=== PATIENT | female | born 1950 | race Caucasian/White ===

== ENCOUNTER → 2020-03-15 | Outpatient (CLI) | payer MEDICARE ==
--- NOTE | 2020-03-17 16:50 | RAD ---
BILATERAL SCREENING MAMMOGRAM, 3-D History: Routine screening. Comparison: 03/05/2019, 03/07/2018. Technique: MLO and CC digital tomosynthesis (3D) images obtained. Radiologist reviewed these images on dedicated workstation. Findings: Breast Tissue Density B : There are scattered areas of fibroglandular density. There are no dominant masses, suspicious microcalcifications, or architectural distortion. Multiple small vessels bilaterally and possible asymmetries are stable compared to the prior exams. IMPRESSION: No mammographic evidence of malignancy. Recommend routine screening. BI-RADS category 1: Negative. The images were reviewed with computer-aided detection. Patient information is entered into reminder system with a target due date for the next screening mammogram. Mammography is the most sensitive method for finding small breast cancers, but it does not detect them all and is not a substitute for careful clinical examination. A negative mammogram does not negate a clinically suspicious finding and should not result in delay in biopsying a clinically suspicious abnormality. "Our facility is accredited by the [employer] Mammography Program." Electronically signed by: Chavo Paul MD (03/17/2020 4:47 PM) [email or web address]
== END | disposition home or self-care (01) ==
LOC: MAMMO 13:10
PROVIDERS: ATTEND Family Medicine
DX: Z12.31 Encounter for screening mammogram for malignant neoplasm of breast (principal)
CPT/HCPCS: 77063; 77067

== ENCOUNTER → 2020-04-19 | Outpatient (CLI) | payer MEDICARE ==
--- NOTE | 2020-04-19 17:32 | RAD ---
GASTRIC EMPTYING STUDY History: Reason: ABD. PAIN / Spl. Instructions: / History: COMPARISON: None. TECHNIQUE: Serial static images were obtained over the stomach following oral administration of 2 mCi of 99m-Tc sulfur colloid in an egg based meal. FINDINGS: The stomach appears normal in contour. There is clearance of activity into the small bowel. The remaining fraction of gastric activity is as follows. 1 hour 50% (normal range 34.8-91%) 2 hour 18% (normal range 2.7-60%) 3 hour 7% (normal range 0.5-28%) 4 hour 1% (normal range 0-10%) Gastric emptying half-time is 57 minutes (normal <90 minutes). IMPRESSION: 1. Normal gastric emptying. Electronically signed by: Goran Mayer DO (04/19/2020 5:29 PM) [facility]
== END | disposition home or self-care (01) ==
LOC: NM 08:43
PROVIDERS: ATTEND Internal Medicine Gastroenterology
DX: R10.84 Generalized abdominal pain (principal)
CPT/HCPCS: 78264; A9541

== ENCOUNTER → 2021-03-01 | Outpatient (CLI) | payer MEDICARE ==
--- NOTE | 2021-03-01 14:56 | RAD ---
PROCEDURE: MG BILAT SCREEN+SHAWN HISTORY: The patient is 70 years old and is seen for Reason: SCREENING / Spl. Instructions: / Histor y: . COMPARISON: March 15, 2020 TECHNIQUE: CC and MLO views of both breasts were obtained. Images were processed by the [employer] computer-aided detection system. DENSITY: There are scattered fibroglandular densities. FINDINGS: Bilateral scattered breast masses, unchanged. Benign-appearing calcifications on the right, unchanged. IMPRESSION: Stable bilateral mammograms. Recommend annual screening mammograms per [employer] [employer] guidelines. She will be due in one year. BI-RADS category 2 Benign Patient entered into a reminder system for annual screening mammogram. Electronically signed by: Goran Mayer DO (03/01/2021 2:54 PM) [id number]
== END ==
LOC: MAMMO 13:23
PROVIDERS: ATTEND Family Medicine
DX: Z12.31 Encounter for screening mammogram for malignant neoplasm of breast (principal)
CPT/HCPCS: 77063; 77067

== ENCOUNTER → 2021-03-15 | Outpatient (CLI) | payer MEDICARE ==
--- NOTE | 2021-03-15 15:06 | RAD ---
EXAM: Chest CT without intravenous contrast. HISTORY: Pulmonary nodule. TECHNIQUE: Computed tomographic images of the chest were obtained without contrast. Multiplanar refor matting was performed. *One or more of the following individualized dose reduction techniques were utilized for this examina tion: 1. Automated exposure control. 2. Adjustment of the mA and/or kV according to patient size. 3. Use of iterative reconstruction technique. COMPARISON: None. FINDINGS: The heart is normal in size. The aorta is normal in caliber. There is suggestion of a small right thyroid nodule. No pathologically enlarged lymph node is seen. There is no pneumothorax or ple ural effusion. There are few nonspecific peripheral areas of groundglass opacity likely due to pleura l parenchymal scarring and atelectasis. There is a 3 mm pleural-based nodule within the anterior late ral right middle lobe with adjacent atelectasis or scarring. There is posterior dependent atelectasis . There are hepatic cysts. The largest of these measures 8.7 cm within the right hepatic lobe. There is no acute finding involving the upper abdomen. There are degenerative changes involving the spine. There are multiple endplate Schmorl's nodes. There is a suspected bone island within T11. IMPRESSION: 1. Mild multifocal pleural proximal scarring and basilar atelectasis. There is no acute infiltrate. 2. 3 mm pleural-based nodule within the right middle lobe. Follow-up can performed in one year if the re are risk factors for pulmonary neoplasm. 3. Multiple simple appearing hepatic cysts. Electronically signed by: Patricia Schmidt MD (03/15/2021 3:03 PM) [id number]
== END ==
LOC: CT 14:03
PROVIDERS: ATTEND Family Medicine
DX: R91.1 Solitary pulmonary nodule (principal); J98.11 Atelectasis; J98.4 Other disorders of lung; M51.44 Schmorl's nodes, thoracic region
CPT/HCPCS: 71250

== ENCOUNTER → 2021-11-21 | Outpatient (CLI) | payer MEDICARE ==
--- NOTE | 2021-11-21 13:58 | RAD ---
Right upper quadrant abdominal ultrasound History: Reason: HEPATIC STEATOSIS / Spl. Instructions: / History: Comparison: CT chest without contrast, March 15, 2021. Technique: Transabdominal ultrasound images are obtained. Findings: The liver is increased in echogenicity.. The liver measures 18.6 cm. Ultrasound is not sensitive for detecting solid liver lesions. Portal flow is hepatopetal. There are hepatic cysts. There is a 1.3 cm cyst in the left hepatic lobe. There is a posterior right hepatic lobe cyst measuring up to 9.4 cm. The common bile duct diameter measures 5 mm. The gallbladder wall measures less than 3 mm. Per report, sonographic Castro sign is negative. There is no cholelithiasis or pericholecystic fluid. The pancreas is echogenic and is partially seen due to overlying bowel gas. The right kidney is normal in echotexture and measures 9.7 cm. Corticomedullary differentiation is p reserved. There is no hydronephrosis. IVC is not well seen due to overlying bowel gas. IMPRESSION: Fatty infiltration of the liver. Mild hepatomegaly. Hepatic cysts. Electronically signed by: Matthias Logan MD (11/21/2021 1:56 PM) [id number]
== END ==
LOC: US 11:51
PROVIDERS: ATTEND Family Medicine
DX: K76.0 Fatty (change of) liver, not elsewhere classified (principal); R16.0 Hepatomegaly, not elsewhere classified; K76.89 Other specified diseases of liver
CPT/HCPCS: 76705

== ENCOUNTER 2022-02-06 14:44 | Emergency (ER) | payer MEDICARE ==
[~2022-02-06] VITALS: Ht 157.5 cm; Wt 92.0 kg
[2022-02-06] MEDS ORDERED: OXYMETAZOLINE 0.05% NASAL SPRAY 30ML BOTTLE. NS ONE (15:15)
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
[2022-02-06] MEDS ORDERED: NEOMY/BACITR/POLYMYXIN OINT PACKET. TP ONE (16:30)
[2022-02-06 16:45] VITALS: BP 148/82
== END 2022-02-06 16:55 | disposition home or self-care (01) ==
LOC: ER 14:44
DX: R04.0 Epistaxis (principal); Z86.711 Personal history of pulmonary embolism; Z88.0 Allergy status to penicillin; Z88.2 Allergy status to sulfonamides
CPT/HCPCS: 99283